=== PATIENT | male | born 1940 | race Caucasian/White ===

== ENCOUNTER 2017-04-16 15:08 | Observation (INO) | payer BC ==
[~2017-04-16] VITALS: Ht 182.9 cm; Wt 85.2 kg
[~2017-04-16 15:08] MED LIST: ASPIRIN E.C. 8181 MG PO; LEVOTHYROXIN0.112 MG PO; LOSARTAN POTASS1 TA2 PO; TRIAMCINOLONE A15 GM TP
[2017-04-16] MEDS ORDERED: PRILOSEC OTC20 MG PO (15:32)
[2017-04-16] MEDS ORDERED: VITAMIN C PURE500 M1 PO (15:33)
[2017-04-16 16:00] VITALS: BP 163/97
[2017-04-16 18:06] VITALS: BP 146/90
[2017-04-16 18:31] VITALS: BP 146/90
[2017-04-16 23:01] VITALS: BP 115/68
[2017-04-17 03:39] VITALS: BP 130/65
[2017-04-17 06:28] VITALS: BP 139/80
[2017-04-17 11:56] VITALS: BP 145/84
[2017-04-17 15:48] VITALS: BP 151/87
== END 2017-04-17 15:51 | disposition home or self-care (01) ==
LOC: MED/SURG 15:08
PROVIDERS: ADMIT Nurse Practitioner Primary Care
DX: E13.10 Other specified diabetes mellitus with ketoacidosis without coma (principal); E87.1 Hypo-osmolality and hyponatremia; I10 Essential (primary) hypertension; E03.9 Hypothyroidism, unspecified
CPT/HCPCS: G0378; J1815; J7030

== ENCOUNTER → 2017-07-21 | Outpatient (CLI) | payer BC ==
[~2017-07-21] MED LIST changes: +PRILOSEC OTC20 MG PO; +VITAMIN C PURE500 M1 PO
[2017-07-21 08:02] LABS: BASO # 0.1 (0.02-0.10); EOS # 0.2 (0.04-0.40); EOS % 2.6 % (0.0-4.0); HEMATOCRIT 42.4 % (42.0-52.0); HEMOGLOBIN 14.1 g/dL (13.5-18.0); LYMPH# 2.5 (1.50-4.00); MEAN CELL VOLUME 96 fl (78-100); MEAN CORPUSCULAR HEMOGLOBIN 32 pg (27-31); MEAN CORPUSCULAR HGB CONC 33 g/dL (33-37); MEAN PLATELET VOLUME 9.5 fl (7.4-10.4); MONO # 0.7 (0.20-0.80); NEU # 3.2 (1.40-6.50); PLATELET COUNT 260 K/mm3 (130-400); RED BLOOD COUNT 4.43 M/mm3 (4.20-5.60); RED CELL DISTRIBUTION WIDTH 13.5 % (11.5-14.5); WHITE BLOOD COUNT 6.6 K/mm3 (4.8-10.8)
[2017-07-21 08:12] LABS: BUN/CREATININE RATIO 17.3 (6.0-26.0); CALCIUM 9.3 mg/dL (8.4-10.2)
== END ==
LOC: LAB 07:37
PROVIDERS: Internal Medicine
DX: E11.9 Type 2 diabetes mellitus without complications (principal); I10 Essential (primary) hypertension; E78.2 Mixed hyperlipidemia; E03.4 Atrophy of thyroid (acquired)

== ENCOUNTER → 2017-10-27 | Outpatient (CLI) | payer BC | LOC: LAB 07:08 | DX: E11.9 Type 2 diabetes mellitus without complications (principal) ==

== ENCOUNTER → 2018-03-25 | Outpatient (CLI) | payer BC ==
[2018-03-25 07:37] LABS: EOS # 0.2 (0.04-0.40); EOS % 3.5 % (0.0-4.0); HEMATOCRIT 43.4 % (42.0-52.0); HEMOGLOBIN 14.7 g/dL (13.5-18.0); LYMPH# 2.4 (1.50-4.00); MEAN CELL VOLUME 94 fl (78-100); MEAN CORPUSCULAR HEMOGLOBIN 32 pg (27-31); MEAN CORPUSCULAR HGB CONC 34 g/dL (33-37); MEAN PLATELET VOLUME 9.5 fl (7.4-10.4); MONO # 0.7 (0.20-0.80); NEU # 3.4 (1.40-6.50); PLATELET COUNT 248 K/mm3 (130-400); RED BLOOD COUNT 4.64 M/mm3 (4.20-5.60); RED CELL DISTRIBUTION WIDTH 13.3 % (11.5-14.5); WHITE BLOOD COUNT 6.8 K/mm3 (4.8-10.8)
[2018-03-25 07:44] LABS: ALBUMIN 4.2 g/dL (3.5-5.0); CALCIUM 9.3 mg/dL (8.4-10.2); TOTAL BILIRUBIN 0.6 mg/dL (0.2-1.3); TOTAL PROTEIN 8.3 g/dL (6.3-8.2)
[2018-03-25 08:51] LABS: URINE APPEARANCE CLEAR; URINE BILIRUBIN NEGATIVE (NEGATIVE); URINE BLOOD NEGATIVE (NEGATIVE); URINE COLOR YELLOW; URINE GLUCOSE NEGATIVE (NEGATIVE); URINE KETONE NEGATIVE (NEGATIVE); URINE LEUKOCYTE ESTERASE NEGATIVE (NEGATIVE); URINE MUCUS PRESENT (NOT PRESENT); URINE NITRATE NEGATIVE (NEGATIVE); URINE PROTEIN(semi-quant) NEGATIVE (NEGATIVE); URINE UROBILINOGEN NORMAL (NORMAL)
[2018-03-25 09:17] LABS: ERYTHROCYTE SEDIMENTATION RATE 23 mm/hr (0-20)
== END ==
LOC: LAB 07:02
PROVIDERS: Internal Medicine
DX: Z12.5 Encounter for screening for malignant neoplasm of prostate (principal); Z12.11 Encounter for screening for malignant neoplasm of colon; E03.9 Hypothyroidism, unspecified; E11.9 Type 2 diabetes mellitus without complications; E78.2 Mixed hyperlipidemia; I10 Essential (primary) hypertension

== ENCOUNTER → 2019-08-26 | Outpatient (CLI) | payer BC ==
[2019-08-26 08:05] LABS: EOS # 0.3 (0.04-0.40); EOS % 4.8 % (0.0-4.0); HEMATOCRIT 40.1 % (42.0-52.0); HEMOGLOBIN 12.5 g/dL (13.5-18.0); MEAN CELL VOLUME 88 fl (78-100); MEAN CORPUSCULAR HEMOGLOBIN 28 pg (27-31); MEAN CORPUSCULAR HGB CONC 31 g/dL (33-37); MEAN PLATELET VOLUME 9.8 fl (7.4-10.4); MONO # 0.7 (0.20-0.80); NEU # 2.7 (1.40-6.50); PLATELET COUNT 272 K/mm3 (130-400); RED BLOOD COUNT 4.55 M/mm3 (4.20-5.60); RED CELL DISTRIBUTION WIDTH 15.3 % (11.5-14.5); WHITE BLOOD COUNT 5.7 K/mm3 (4.8-10.8)
[2019-08-26 08:07] LABS: ALBUMIN 3.9 g/dL (3.4-4.8); POTASSIUM 4.4 mmol/L (3.5-5.1)
[2019-08-26 08:08] LABS: CALCIUM 9.1 mg/dL (8.3-10.5)
[2019-08-26 08:10] LABS: TOTAL PROTEIN 7.8 g/dL (6.2-8.1)
[2019-08-26 08:11] LABS: TOTAL BILIRUBIN 0.5 mg/dL (0.2-1.2)
[2019-08-26 08:37] LABS: URINE APPEARANCE CLEAR; URINE BILIRUBIN NEGATIVE (NEGATIVE); URINE BLOOD NEGATIVE (NEGATIVE); URINE COLOR YELLOW; URINE GLUCOSE NEGATIVE (NEGATIVE); URINE KETONE NEGATIVE (NEGATIVE); URINE LEUKOCYTE ESTERASE NEGATIVE (NEGATIVE); URINE NITRATE NEGATIVE (NEGATIVE); URINE PROTEIN(semi-quant) TRACE mg/dL (NEGATIVE); URINE UROBILINOGEN NORMAL (NORMAL)
[2019-08-26 08:38] LABS: URINE MUCUS PRESENT (NOT PRESENT)
[2019-08-26 09:17] LABS: ERYTHROCYTE SEDIMENTATION RATE 23 mm/hr (0-20)
== END ==
LOC: LAB 07:26
PROVIDERS: Internal Medicine
DX: Z12.5 Encounter for screening for malignant neoplasm of prostate (principal); Z12.11 Encounter for screening for malignant neoplasm of colon; E78.2 Mixed hyperlipidemia; E11.9 Type 2 diabetes mellitus without complications; I10 Essential (primary) hypertension; E03.9 Hypothyroidism, unspecified

== ENCOUNTER → 2019-09-02 | Outpatient (CLI) | payer BC | LOC: AMSURD 08:17 → RAD 08:17 | DX: E11.9 Type 2 diabetes mellitus without complications (principal); E78.2 Mixed hyperlipidemia; I10 Essential (primary) hypertension; E03.9 Hypothyroidism, unspecified; I49.3 Ventricular premature depolarization ==

== ENCOUNTER → 2019-09-07 | Outpatient (CLI) | payer BC | LOC: RAD 07:48 | DX: I65.23 Occlusion and stenosis of bilateral carotid arteries (principal); I25.10 Atherosclerotic heart disease of native coronary artery without angina pectoris ==

== ENCOUNTER → 2020-05-22 | Outpatient (CLI) | payer BC ==
[2020-05-22 08:13] LABS: BASO # 0.1 (0.02-0.10); EOS # 0.3 (0.04-0.40); EOS % 4.5 % (0.0-4.0); HEMATOCRIT 38.3 % (42.0-52.0); HEMOGLOBIN 11.5 g/dL (13.5-18.0); LYMPH# 2.6 (1.50-4.00); MEAN CELL VOLUME 85 fl (78-100); MEAN CORPUSCULAR HEMOGLOBIN 26 pg (27-31); MEAN CORPUSCULAR HGB CONC 30 g/dL (33-37); MEAN PLATELET VOLUME 9.9 fl (7.4-10.4); MONO # 0.8 (0.20-0.80); NEU # 2.7 (1.40-6.50); PLATELET COUNT 279 K/mm3 (130-400); RED CELL DISTRIBUTION WIDTH 15.6 % (11.5-14.5); WHITE BLOOD COUNT 6.4 K/mm3 (4.8-10.8)
[2020-05-22 08:18] LABS: ALBUMIN 3.9 g/dL (3.4-4.8); POTASSIUM 4.3 mmol/L (3.5-5.1)
[2020-05-22 08:19] LABS: CALCIUM 8.9 mg/dL (8.3-10.5)
[2020-05-22 08:22] LABS: TOTAL BILIRUBIN 0.4 mg/dL (0.2-1.2)
== END ==
LOC: LAB 07:30
PROVIDERS: Internal Medicine
DX: E11.9 Type 2 diabetes mellitus without complications (principal); E78.2 Mixed hyperlipidemia; I10 Essential (primary) hypertension; E03.9 Hypothyroidism, unspecified

== ENCOUNTER → 2020-11-21 | Outpatient (CLI) | payer BC ==
[2020-11-21 11:04] LABS: ALBUMIN 4.1 g/dL (3.4-4.8); POTASSIUM 3.9 mmol/L (3.5-5.1)
[2020-11-21 11:05] LABS: CALCIUM 9.1 mg/dL (8.3-10.5)
[2020-11-21 11:06] LABS: TOTAL PROTEIN 8.3 g/dL (6.2-8.1)
[2020-11-21 11:08] LABS: TOTAL BILIRUBIN 0.5 mg/dL (0.2-1.2)
[2020-11-21 11:14] LABS: HEMATOCRIT 31.1 % (42.0-52.0); HEMOGLOBIN 9.3 g/dL (13.5-18.0); MEAN CELL VOLUME 83 fl (78-100); MEAN CORPUSCULAR HEMOGLOBIN 25 pg (27-31); MEAN CORPUSCULAR HGB CONC 30 g/dL (33-37); MEAN PLATELET VOLUME 10.8 fl (7.4-10.4); PLATELET COUNT 299 K/mm3 (130-400); RED BLOOD COUNT 3.77 M/mm3 (4.20-5.60); RED CELL DISTRIBUTION WIDTH 16.2 % (11.5-14.5); WHITE BLOOD COUNT 6.9 K/mm3 (4.8-10.8)
[2020-11-21 12:15] LABS: LYMPHOCYTE 32 % (20-51); MONOCYTE 11 % (3-10); NEUTROPHILS 54 % (42-75)
[2020-11-21 12:16] LABS: ERYTHROCYTE SEDIMENTATION RATE 0 mm/hr (0-20); OVALOCYTES 1+
== END ==
LOC: LAB 09:46
PROVIDERS: Internal Medicine
DX: Z12.5 Encounter for screening for malignant neoplasm of prostate (principal); I10 Essential (primary) hypertension; E78.2 Mixed hyperlipidemia; E03.4 Atrophy of thyroid (acquired); D64.9 Anemia, unspecified; E11.9 Type 2 diabetes mellitus without complications; K90.9 Intestinal malabsorption, unspecified; R06.09 Other forms of dyspnea

== ENCOUNTER → 2020-11-24 | Outpatient (CLI) | payer BC | LOC: LAB 08:25 | DX: Z12.11 Encounter for screening for malignant neoplasm of colon (principal) ==

== ENCOUNTER → 2020-12-14 | Day surgery (SDC) | payer BC | LOC: MSO 08:26 | DX: Z86.010 Personal history of colon polyps (principal); D50.9 Iron deficiency anemia, unspecified; K57.30 Diverticulosis of large intestine without perforation or abscess without bleeding; K44.9 Diaphragmatic hernia without obstruction or gangrene; K29.70 Gastritis, unspecified, without bleeding; K22.2 Esophageal obstruction; K21.9 Gastro-esophageal reflux disease without esophagitis; E03.4 Atrophy of thyroid (acquired); E11.22 Type 2 diabetes mellitus with diabetic chronic kidney disease; I12.9 Hypertensive chronic kidney disease with stage 1 through stage 4 chronic kidney disease, or unspecified chronic kidney disease; N18.30 Chronic kidney disease, stage 3 unspecified; Z79.82 Long term (current) use of aspirin; E66.9 Obesity, unspecified; Z79.84 Long term (current) use of oral hypoglycemic drugs; Z79.899 Other long term (current) drug therapy; Z79.890 Hormone replacement therapy; E78.2 Mixed hyperlipidemia; Z87.891 Personal history of nicotine dependence | CPT/HCPCS: 00813; J2704; J7120 ==

== ENCOUNTER → 2021-01-30 | Outpatient (CLI) | payer BC ==
[2021-01-30 08:51] LABS: BASO # 0.05 (0.02-0.10); EOS # 0.19 (0.04-0.40); HEMATOCRIT 40.8 % (42.0-52.0); HEMOGLOBIN 13.3 g/dL (13.5-18.0); LYMPH# 1.82 (1.50-4.00); MEAN CELL VOLUME 89 fl (78-100); MEAN CORPUSCULAR HEMOGLOBIN 29 pg (27-31); MEAN CORPUSCULAR HGB CONC 33 g/dL (33-37); MEAN PLATELET VOLUME 9.7 fl (7.4-10.4); NEU # 3.51 (1.40-6.50); PLATELET COUNT 185 K/mm3 (130-400); RED CELL DISTRIBUTION WIDTH 20.8 % (11.5-14.5); WHITE BLOOD COUNT 6.3 K/mm3 (4.8-10.8)
== END ==
LOC: LAB 08:24
PROVIDERS: Internal Medicine
DX: D64.9 Anemia, unspecified (principal)

== ENCOUNTER → 2021-02-16 | Outpatient (CLI) | payer BC | LOC: CARDLAB 08:42 | DX: R06.00 Dyspnea, unspecified (principal) | CPT/HCPCS: A9500 ==

== ENCOUNTER → 2021-06-07 | Outpatient (CLI) | payer BC ==
[2021-06-07 16:30] LABS: BASO # 0.06 K/mm3 (0.02-0.10); EOS # 0.21 K/mm3 (0.04-0.40); EOS % 2.5 % (0.0-4.0); HEMATOCRIT 41.6 % (42.0-52.0); HEMOGLOBIN 13.9 g/dL (13.5-18.0); LYMPH# 2.39 K/mm3 (1.50-4.00); MEAN CELL VOLUME 98 fl (78-100); MEAN CORPUSCULAR HEMOGLOBIN 33 pg (27-31); MEAN CORPUSCULAR HGB CONC 33 g/dL (33-37); MEAN PLATELET VOLUME 9.9 fl (7.4-10.4); MONO # 0.78 K/mm3 (0.20-0.80); NEU # 4.98 K/mm3 (1.40-6.50); PLATELET COUNT 190 K/mm3 (130-400); RED BLOOD COUNT 4.24 M/mm3 (4.20-5.60); RED CELL DISTRIBUTION WIDTH 13.3 % (11.5-14.5); WHITE BLOOD COUNT 8.4 K/mm3 (4.8-10.8)
[2021-06-07 17:00] LABS: ALBUMIN 3.9 g/dL (3.4-4.8); POTASSIUM 4.1 mmol/L (3.5-5.1)
[2021-06-07 17:02] LABS: CALCIUM 9.6 mg/dL (8.3-10.5)
[2021-06-07 17:03] LABS: TOTAL PROTEIN 7.8 g/dL (6.2-8.1)
[2021-06-07 17:05] LABS: TOTAL BILIRUBIN 0.5 mg/dL (0.2-1.2)
== END ==
LOC: LAB 16:18
PROVIDERS: Internal Medicine
DX: E11.9 Type 2 diabetes mellitus without complications (principal); D64.9 Anemia, unspecified

== ENCOUNTER → 2021-11-26 | Outpatient (CLI) | payer BC ==
[2021-11-26 14:53] LABS: BASO # 0.08 K/mm3 (0.02-0.10); EOS # 0.19 K/mm3 (0.04-0.40); EOS % 2.3 % (0.0-4.0); HEMATOCRIT 42.8 % (42.0-52.0); HEMOGLOBIN 14.6 g/dL (13.5-18.0); MEAN CELL VOLUME 96 fl (78-100); MEAN CORPUSCULAR HEMOGLOBIN 33 pg (27-31); MEAN CORPUSCULAR HGB CONC 34 g/dL (33-37); MEAN PLATELET VOLUME 9.6 fl (7.4-10.4); MONO # 0.69 K/mm3 (0.20-0.80); NEU # 5.01 K/mm3 (1.40-6.50); PLATELET COUNT 204 K/mm3 (130-400); RED BLOOD COUNT 4.44 M/mm3 (4.20-5.60); RED CELL DISTRIBUTION WIDTH 12.8 % (11.5-14.5); WHITE BLOOD COUNT 8.2 K/mm3 (4.8-10.8)
[2021-11-26 15:05] LABS: URINE COLOR YELLOW
[2021-11-26 15:06] LABS: URINE BILIRUBIN NEGATIVE (NEGATIVE); URINE GLUCOSE NEGATIVE (NEGATIVE); URINE KETONE NEGATIVE (NEGATIVE); URINE MUCUS PRESENT (NOT PRESENT); URINE NITRATE NEGATIVE (NEGATIVE); URINE UROBILINOGEN NORMAL (NORMAL)
[2021-11-26 15:15] LABS: ALBUMIN 4.2 g/dL (3.4-4.8); POTASSIUM 4.1 mmol/L (3.5-5.1)
[2021-11-26 15:16] LABS: CALCIUM 9.7 mg/dL (8.3-10.5)
[2021-11-26 15:17] LABS: TOTAL PROTEIN 8.3 g/dL (6.2-8.1)
[2021-11-26 15:19] LABS: TOTAL BILIRUBIN 0.6 mg/dL (0.2-1.2)
[2021-11-26 15:24] LABS: MAGNESIUM 1.68 mg/dL (1.60-2.60)
[2021-11-26 16:43] LABS: URINE APPEARANCE CLEAR
[2021-11-26 16:44] LABS: URINE BLOOD NEGATIVE (NEGATIVE); URINE LEUKOCYTE ESTERASE NEGATIVE (NEGATIVE); URINE PROTEIN(semi-quant) TRACE (NEGATIVE)
== END ==
LOC: RAD 14:39 → AMSURD 14:39 → LAB 14:39
PROVIDERS: Internal Medicine
DX: Z01.818 Encounter for other preprocedural examination (principal); Z12.5 Encounter for screening for malignant neoplasm of prostate; E03.4 Atrophy of thyroid (acquired); I45.10 Unspecified right bundle-branch block; E78.2 Mixed hyperlipidemia; E11.9 Type 2 diabetes mellitus without complications; K90.9 Intestinal malabsorption, unspecified; R00.1 Bradycardia, unspecified

== ENCOUNTER → 2021-11-27 | Outpatient (CLI) | payer BC | LOC: LAB 08:10 | PROVIDERS: Internal Medicine | DX: Z01.818 Encounter for other preprocedural examination (principal); Z12.5 Encounter for screening for malignant neoplasm of prostate; E03.4 Atrophy of thyroid (acquired); E78.2 Mixed hyperlipidemia; E11.9 Type 2 diabetes mellitus without complications; K90.9 Intestinal malabsorption, unspecified ==

== ENCOUNTER → 2021-11-28 | Day surgery (SDC) | payer BC | END | disposition home or self-care (01) | LOC: MSO 06:54 | DX: H25.811 Combined forms of age-related cataract, right eye (principal) | CPT/HCPCS: 00142; J0171; J2250; J3010; V2632 ==

== ENCOUNTER → 2021-12-26 | Day surgery (SDC) | payer BC | END | disposition home or self-care (01) | LOC: MSO 02:06 | DX: H25.812 Combined forms of age-related cataract, left eye (principal); Z87.891 Personal history of nicotine dependence | CPT/HCPCS: 00142; J0171; J2250; V2632 ==

== ENCOUNTER → 2022-06-07 | Outpatient (CLI) | payer BC | LOC: LAB 09:42 | DX: R05.9 Cough, unspecified (principal); Z20.822 Contact with and (suspected) exposure to COVID-19; Z87.891 Personal history of nicotine dependence ==

== ENCOUNTER 2022-08-05 12:01 | Emergency (ER) | payer BC ==
[~2022-08-05] VITALS: Ht 182.9 cm; Wt 88.6 kg
[2022-08-05] MEDS ORDERED: AMLODIPINE BESYL5 MG PO (12:16)
[2022-08-05] MEDS ORDERED: AMOXICILLIN AND1 TA2 PO (12:16)
[2022-08-05] MEDS ORDERED: ATORVASTATIN CA40 MG PO (12:21)
[2022-08-05] MEDS ORDERED: GLIMEPIRIDE4 MG PO (12:22)
[2022-08-05] MEDS ORDERED: LOSARTAN POTASS50 M1 PO (12:24)
[2022-08-05] MEDS ORDERED: METFORMIN ER500 MG (12:25)
[2022-08-05] MEDS ORDERED: OMEPRAZOLE40 MG PO (12:26)
[2022-08-05] MEDS ORDERED: TOBRAMYCIN AND2.5 ML (12:28)
[2022-08-05 13:15] LABS: BASO # 0.02 K/mm3 (0.02-0.10); EOS # 0.03 K/mm3 (0.04-0.40); EOS % 0.4 % (0.0-4.0); HEMATOCRIT 43.8 % (42.0-52.0); HEMOGLOBIN 14.9 g/dL (13.5-18.0); LYMPH# 1.07 K/mm3 (1.50-4.00); MEAN CELL VOLUME 94 fl (78-100); MEAN CORPUSCULAR HEMOGLOBIN 32 pg (27-31); MEAN CORPUSCULAR HGB CONC 34 g/dL (33-37); MEAN PLATELET VOLUME 9.7 fl (7.4-10.4); MONO # 1.08 K/mm3 (0.20-0.80); NEU # 4.48 K/mm3 (1.40-6.50); PLATELET COUNT 249 K/mm3 (130-400); RED BLOOD COUNT 4.66 M/mm3 (4.20-5.60); WHITE BLOOD COUNT 6.7 K/mm3 (4.8-10.8)
[2022-08-05 13:21] LABS: ALBUMIN 3.5 g/dL (3.4-4.8)
[2022-08-05 13:22] LABS: CALCIUM 9.1 mg/dL (8.3-10.5)
[2022-08-05 13:23] LABS: TOTAL PROTEIN 7.5 g/dL (6.2-8.1)
[2022-08-05 13:36] LABS: TROPONIN-I 0.053 ng/mL (<0.030)
[2022-08-05 13:51] LABS: URINE APPEARANCE CLEAR; URINE BILIRUBIN NEGATIVE (NEGATIVE); URINE BLOOD NEGATIVE (NEGATIVE); URINE COLOR YELLOW; URINE GLUCOSE NEGATIVE (NEGATIVE); URINE KETONE NEGATIVE (NEGATIVE); URINE LEUKOCYTE ESTERASE TRACE (NEGATIVE); URINE MUCUS PRESENT (NOT PRESENT); URINE NITRATE NEGATIVE (NEGATIVE); URINE PROTEIN(semi-quant) 2+ (NEGATIVE)
[2022-08-05 14:06] LABS: D-DIMER 6.96 mg/L FEU (0.15-0.50)
[2022-08-06 05:38] LABS: HEMATOCRIT 39.3 % (42.0-52.0); HEMOGLOBIN 13.5 g/dL (13.5-18.0); MEAN CELL VOLUME 95 fl (78-100); MEAN CORPUSCULAR HEMOGLOBIN 33 pg (27-31); MEAN CORPUSCULAR HGB CONC 34 g/dL (33-37); MEAN PLATELET VOLUME 9.3 fl (7.4-10.4); PLATELET COUNT 230 K/mm3 (130-400); RED BLOOD COUNT 4.16 M/mm3 (4.20-5.60); WHITE BLOOD COUNT 5.2 K/mm3 (4.8-10.8)
[2022-08-06 05:49] LABS: CALCIUM 8.4 mg/dL (8.3-10.5)
[2022-08-06 05:51] LABS: TOTAL PROTEIN 6.4 g/dL (6.2-8.1)
[2022-08-06 05:53] LABS: TOTAL BILIRUBIN 0.8 mg/dL (0.2-1.2)
[2022-08-06 06:03] LABS: TROPONIN-I 0.048 ng/mL (<0.030)
[2022-08-06 06:29] LABS: BAND 15 % (0-10); LYMPHOCYTE 16 % (20-51); MONOCYTE 20 % (3-10); NEUTROPHILS 49 % (42-75)
[2022-08-06 11:20] VITALS: BP 145/83
[2022-09-24] MEDS ORDERED: OPTIMUM AC500 Millio PO (00:12)
[2022-09-24] MEDS ORDERED: ELIQUIS5 MG PO (00:23)
[2022-09-24] MEDS ORDERED: AMIODARONE200 MG PO (00:24)
[2022-09-24] MEDS ORDERED: METRONIDAZOLE500 M1 PO (00:25)
[2022-09-24] MEDS ORDERED: LEVOTHYROXINE0.15 MG PO (00:26)
[2022-09-24] MEDS ORDERED: INSULIN GL100 UNIT/1 SQ (00:28)
[2022-09-24] MEDS ORDERED: INSULIN LI100 UNIT/1 (00:30)
[2022-09-24] MEDS ORDERED: PANTOPRAZOLE SO40 MG PO (00:31)
[2022-09-24] MEDS ORDERED: COLACE100 M1 PO (00:40)
[2022-10-02] MEDS ORDERED: DAPTOMYCIN500 MG IV (12:58)
[2022-10-02] MEDS ORDERED: CEFEPIME IV (13:00)
[2022-10-18] MEDS ORDERED: NATURAL IRON65 MG PO (07:51)
[2022-10-18] MEDS ORDERED: VITAMIN C500 M6 PO (07:52)
[2022-10-18] MEDS ORDERED: AMOXICILLIN AND1 TA2 PO (07:54)
[2022-12-09] MEDS ORDERED: ACIDOPHILUS1 EAC1 PO (08:37)
[2022-12-09] MEDS ORDERED: AMIODARONE HCL100 MG PO (08:38)
[2022-12-09] MEDS ORDERED: OZEMPIC0.25 MG/01 SQ (08:55)
== END 2022-08-06 11:00 | disposition short-term general hospital (02) ==
LOC: ED 12:01
PROVIDERS: Nurse Practitioner
DX: K57.92 Diverticulitis of intestine, part unspecified, without perforation or abscess without bleeding (principal); I21.4 Non-ST elevation (NSTEMI) myocardial infarction; K56.600 Partial intestinal obstruction, unspecified as to cause; D64.9 Anemia, unspecified; R79.1 Abnormal coagulation profile; Z20.822 Contact with and (suspected) exposure to COVID-19
CPT/HCPCS: J1956; J2270; J3490; J7030; Q9967

== ENCOUNTER → 2022-10-16 | Outpatient (CLI) | payer BC ==
[~2022-10-16] MED LIST changes: +AMIODARONE200 MG PO; +AMLODIPINE BESYL5 MG PO; +AMOXICILLIN AND1 TA2 PO; +ATORVASTATIN CA40 MG PO; +CEFEPIME IV; +COLACE100 M1 PO; +DAPTOMYCIN500 MG IV; +ELIQUIS5 MG PO; +GLIMEPIRIDE4 MG PO; +INSULIN GL100 UNIT/1 SQ; +INSULIN LI100 UNIT/1; +LEVOTHYROXINE0.15 MG PO; +LOSARTAN POTASS50 M1 PO; +METFORMIN ER500 MG; +METRONIDAZOLE500 M1 PO; +NATURAL IRON65 MG PO; +OMEPRAZOLE40 MG PO; +OPTIMUM AC500 Millio PO; +PANTOPRAZOLE SO40 MG PO; +TOBRAMYCIN AND2.5 ML; +VITAMIN C500 M6 PO
== END ==
LOC: LAB 08:34
DX: I48.0 Paroxysmal atrial fibrillation (principal); I95.1 Orthostatic hypotension; I12.9 Hypertensive chronic kidney disease with stage 1 through stage 4 chronic kidney disease, or unspecified chronic kidney disease; N18.30 Chronic kidney disease, stage 3 unspecified; E03.4 Atrophy of thyroid (acquired); K90.9 Intestinal malabsorption, unspecified; E78.2 Mixed hyperlipidemia; K57.20 Diverticulitis of large intestine with perforation and abscess without bleeding; E11.9 Type 2 diabetes mellitus without complications

== ENCOUNTER → 2022-10-18 | Outpatient (CLI) | payer BC ==
[~2022-10-18] VITALS: Ht 180.3 cm; Wt 77.3 kg
[2022-10-18 07:46] VITALS: BP 118/73
--- NOTE | 2022-10-18 08:37 | NUR ---
INT initiated and labs drawn with INT start. Purple tube kept on ice immediately after labs drawn per instructions. Medication given per orders at 0820 per orders and INT flushed at 0823. Lab notified of time and provided orders. Pt resting in bed, no needs at this time. in room with pt.
[2022-10-18 08:48] LABS: POTASSIUM 4.7 mmol/L (3.5-5.1)
--- NOTE | 2022-10-18 08:52 | NUR ---
Lab in room to draw 30 min labs.
[2022-10-18 09:23] VITALS: BP 142/79
--- NOTE | 2022-10-18 09:25 | NUR ---
INT removed, and lab in room with pt at this time for 60 min blood draw.
--- NOTE | 2022-10-18 09:30 | NUR ---
Pt out of facility via wheelchair to POV.
[2022-10-21 22:01] LABS: ADRENOCORTICOTROPIC HORMONE 26 pg/mL (5-27)
== END ==
LOC: AMSURD 07:19
PROVIDERS: Internal Medicine
DX: Z51.81 Encounter for therapeutic drug level monitoring (principal)
CPT/HCPCS: J0834

== ENCOUNTER → 2022-10-23 | Outpatient (CLI) | payer BC ==
[2022-10-23 13:57] LABS: ALBUMIN 3.3 g/dL (3.4-4.8)
[2022-10-23 13:58] LABS: POTASSIUM 4.5 mmol/L (3.5-5.1)
[2022-10-23 13:59] LABS: CALCIUM 8.8 mg/dL (8.3-10.5)
[2022-10-23 14:00] LABS: TOTAL PROTEIN 6.9 g/dL (6.2-8.1)
[2022-10-23 14:02] LABS: TOTAL BILIRUBIN 0.2 mg/dL (0.2-1.2)
[2022-10-23 14:06] LABS: MAGNESIUM 1.64 mg/dL (1.60-2.60)
== END ==
LOC: LAB 13:37
PROVIDERS: Nurse Practitioner
DX: I48.0 Paroxysmal atrial fibrillation (principal)

== ENCOUNTER 2022-10-29 13:43 | Emergency (ER) | payer BC ==
[~2022-10-29] VITALS: Ht 180.3 cm; Wt 74.5 kg
[2022-10-29 14:21] LABS: BASO # 0.03 K/mm3 (0.02-0.10); EOS # 0.17 K/mm3 (0.04-0.40); HEMATOCRIT 35.4 % (42.0-52.0); LYMPH# 2.58 K/mm3 (1.50-4.00); MEAN CELL VOLUME 99 fl (78-100); MEAN CORPUSCULAR HEMOGLOBIN 31 pg (27-31); MEAN CORPUSCULAR HGB CONC 31 g/dL (33-37); MEAN PLATELET VOLUME 8.7 fl (7.4-10.4); NEU # 4.87 K/mm3 (1.40-6.50); PLATELET COUNT 252 K/mm3 (130-400); RED BLOOD COUNT 3.59 M/mm3 (4.20-5.60); RED CELL DISTRIBUTION WIDTH 16.7 % (11.5-14.5); WHITE BLOOD COUNT 8.6 K/mm3 (4.8-10.8)
[2022-10-29 14:28] LABS: ALBUMIN 3.4 g/dL (3.4-4.8); POTASSIUM 4.8 mmol/L (3.5-5.1)
[2022-10-29 14:30] LABS: CALCIUM 8.9 mg/dL (8.3-10.5)
[2022-10-29 14:31] LABS: TOTAL PROTEIN 7.3 g/dL (6.2-8.1)
[2022-10-29 14:33] LABS: TOTAL BILIRUBIN 0.2 mg/dL (0.2-1.2)
[2022-10-29 15:59] LABS: URINE WBC 0 /hpf (0-3)
[2022-10-29 16:10] LABS: URINE APPEARANCE CLEAR; URINE COLOR YELLOW
[2022-10-29 16:11] LABS: URINE BILIRUBIN NEGATIVE (NEGATIVE); URINE BLOOD NEGATIVE (NEGATIVE); URINE GLUCOSE 50 mg/dL (NEGATIVE); URINE KETONE NEGATIVE (NEGATIVE); URINE LEUKOCYTE ESTERASE TRACE (NEGATIVE); URINE NITRATE NEGATIVE (NEGATIVE); URINE PROTEIN(semi-quant) TRACE (NEGATIVE); URINE UROBILINOGEN NORMAL (NORMAL)
[2022-10-29 16:26] VITALS: BP 145/74
== END 2022-10-29 16:25 | disposition home or self-care (01) ==
LOC: ED 13:43
PROVIDERS: Physician Assistant
DX: K91.89 Other postprocedural complications and disorders of digestive system (principal); Z93.2 Ileostomy status
CPT/HCPCS: Q9967

== ENCOUNTER → 2022-11-05 | Outpatient (CLI) | payer BC ==
[2022-11-05 17:57] LABS: ALBUMIN 3.6 g/dL (3.4-4.8)
[2022-11-06 10:50] LABS: POTASSIUM 4.5 mmol/L (3.5-5.1)
[2022-11-06 10:51] LABS: CALCIUM 9.1 mg/dL (8.3-10.5)
[2022-11-06 16:44] LABS: TRANSFERRIN 238 mg/dL (163-344)
== END ==
LOC: LAB 17:19
PROVIDERS: Surgery
DX: T81.49XA Infection following a procedure, other surgical site, initial encounter (principal); Z90.49 Acquired absence of other specified parts of digestive tract

== ENCOUNTER → 2023-12-22 | Outpatient (CLI) | payer BC ==
[~2023-12-22] MED LIST changes: +ACIDOPHILUS1 EAC1 PO; +AMIODARONE HCL100 MG PO; +OZEMPIC0.25 MG/01 SQ
[2024-02-10 16:44] LABS: CREATININE OTHER SOURCE 134.9
[2024-02-10 17:59] LABS: ALBUMIN 4.4 g/dL (3.4-4.8); CALCIUM 9.7 mg/dL (8.3-10.5); MAGNESIUM 2.01 mg/dL (1.60-2.60); TOTAL BILIRUBIN 0.9 mg/dL (0.2-1.2); TOTAL PROTEIN 8.3 g/dL (6.2-8.1)
[2024-02-10 18:01] LABS: BASO # 0.03 K/mm3 (0.02-0.10); EOS # 0.21 K/mm3 (0.04-0.40); EOS % 2.5 % (0.0-4.0); HEMATOCRIT 46.4 % (42.0-52.0); HEMOGLOBIN 15.4 g/dL (13.5-18.0); LYMPH# 2.61 K/mm3 (1.50-4.00); MEAN CELL VOLUME 98 fl (78-100); MEAN CORPUSCULAR HEMOGLOBIN 33 pg (27-31); MEAN CORPUSCULAR HGB CONC 33 g/dL (33-37); MEAN PLATELET VOLUME 9.3 fl (7.4-10.4); MONO # 0.73 K/mm3 (0.20-0.80); NEU # 4.89 K/mm3 (1.40-6.50); PLATELET COUNT 181 K/mm3 (130-400); RED BLOOD COUNT 4.73 M/mm3 (4.20-5.60); RED CELL DISTRIBUTION WIDTH 12.6 % (11.5-14.5); WHITE BLOOD COUNT 8.5 K/mm3 (4.8-10.8)
[2024-02-10 18:05] LABS: PH-URINE 5.5 (5.0 - 8.0); URINE APPEARANCE CLEAR (CLEAR); URINE COLOR YELLOW (YELLOW)
[2024-02-10 18:06] LABS: URINE BILIRUBIN NEGATIVE (NEGATIVE); URINE BLOOD NEGATIVE (NEGATIVE); URINE GLUCOSE 2+ (NEGATIVE); URINE KETONE NEGATIVE (NEGATIVE); URINE LEUKOCYTE ESTERASE NEGATIVE (NEGATIVE); URINE NITRATE NEGATIVE (NEGATIVE); URINE PROTEIN(semi-quant) NEGATIVE (NEGATIVE)
== END ==
LOC: LAB 12:30
PROVIDERS: Internal Medicine
DX: Z12.5 Encounter for screening for malignant neoplasm of prostate (principal); Z12.11 Encounter for screening for malignant neoplasm of colon; E03.4 Atrophy of thyroid (acquired); I10 Essential (primary) hypertension; E78.2 Mixed hyperlipidemia; E11.9 Type 2 diabetes mellitus without complications; K90.9 Intestinal malabsorption, unspecified

== ENCOUNTER → 2024-03-23 | Outpatient (CLI) | payer BC ==
[2024-03-23 09:31] LABS: BASO # 0.04 K/mm3 (0.02-0.10); EOS # 0.23 K/mm3 (0.04-0.40); EOS % 2.9 % (0.0-4.0); HEMATOCRIT 43.1 % (42.0-52.0); HEMOGLOBIN 14.3 g/dL (13.5-18.0); MEAN CELL VOLUME 100 fl (78-100); MEAN CORPUSCULAR HEMOGLOBIN 33 pg (27-31); MEAN CORPUSCULAR HGB CONC 33 g/dL (33-37); MEAN PLATELET VOLUME 9.2 fl (7.4-10.4); MONO # 0.57 K/mm3 (0.20-0.80); NEU # 4.54 K/mm3 (1.40-6.50); PLATELET COUNT 187 K/mm3 (130-400); RED CELL DISTRIBUTION WIDTH 13.4 % (11.5-14.5); WHITE BLOOD COUNT 7.9 K/mm3 (4.8-10.8)
[2024-03-23 09:36] LABS: ALBUMIN 4.2 g/dL (3.4-4.8)
[2024-03-23 09:37] LABS: CALCIUM 9.6 mg/dL (8.3-10.5)
[2024-03-23 09:38] LABS: TOTAL PROTEIN 8.1 g/dL (6.2-8.1)
[2024-03-23 09:40] LABS: TOTAL BILIRUBIN 0.9 mg/dL (0.2-1.2)
[2024-03-23 09:45] LABS: MAGNESIUM 1.88 mg/dL (1.60-2.60)
== END ==
LOC: LAB 09:19
PROVIDERS: Internal Medicine
DX: E03.4 Atrophy of thyroid (acquired) (principal); I10 Essential (primary) hypertension; E11.9 Type 2 diabetes mellitus without complications

== ENCOUNTER → 2024-06-21 | Outpatient (CLI) | payer BC ==
[2024-06-21 08:45] LABS: URINE WBC 0 /hpf (0-3)
[2024-06-21 08:50] LABS: BASO # 0.04 K/mm3 (0.02-0.10); EOS # 0.25 K/mm3 (0.04-0.40); EOS % 3.1 % (0.0-4.0); HEMATOCRIT 42.5 % (42.0-52.0); LYMPH# 2.73 K/mm3 (1.50-4.00); MEAN CELL VOLUME 101 fl (78-100); MEAN CORPUSCULAR HEMOGLOBIN 33 pg (27-31); MEAN CORPUSCULAR HGB CONC 33 g/dL (33-37); MEAN PLATELET VOLUME 9.2 fl (7.4-10.4); MONO # 0.63 K/mm3 (0.20-0.80); NEU # 4.24 K/mm3 (1.40-6.50); PLATELET COUNT 198 K/mm3 (130-400); RED CELL DISTRIBUTION WIDTH 13.2 % (11.5-14.5)
[2024-06-21 09:02] LABS: ALBUMIN 4.1 g/dL (3.4-4.8)
[2024-06-21 09:03] LABS: CALCIUM 9.7 mg/dL (8.3-10.5)
[2024-06-21 09:06] LABS: TOTAL BILIRUBIN 0.6 mg/dL (0.2-1.2)
[2024-06-21 09:10] LABS: URINE COLOR YELLOW (YELLOW)
[2024-06-21 09:11] LABS: MAGNESIUM 1.96 mg/dL (1.60-2.60); PH-URINE 5.5 (5.0 - 8.0); URINE APPEARANCE CLEAR (CLEAR); URINE BILIRUBIN NEGATIVE (NEGATIVE); URINE BLOOD NEGATIVE (NEGATIVE); URINE GLUCOSE 2+ (NEGATIVE); URINE KETONE NEGATIVE (NEGATIVE); URINE LEUKOCYTE ESTERASE NEGATIVE (NEGATIVE); URINE NITRATE NEGATIVE (NEGATIVE); URINE PROTEIN(semi-quant) 1+ (NEGATIVE)
== END ==
LOC: LAB 08:35
PROVIDERS: Internal Medicine
DX: K90.9 Intestinal malabsorption, unspecified (principal); E03.4 Atrophy of thyroid (acquired); I10 Essential (primary) hypertension; E78.2 Mixed hyperlipidemia; E11.9 Type 2 diabetes mellitus without complications

== ENCOUNTER → 2024-09-20 | Outpatient (CLI) | payer BC ==
[2024-09-20 09:46] LABS: BASO # 0.03 K/mm3 (0.02-0.10); EOS # 0.24 K/mm3 (0.04-0.40); EOS % 2.8 % (0.0-4.0); HEMOGLOBIN 15.8 g/dL (13.5-18.0); LYMPH# 2.66 K/mm3 (1.50-4.00); MEAN CELL VOLUME 101 fl (78-100); MEAN CORPUSCULAR HEMOGLOBIN 34 pg (27-31); MEAN CORPUSCULAR HGB CONC 34 g/dL (33-37); MEAN PLATELET VOLUME 9.7 fl (7.4-10.4); MONO # 0.57 K/mm3 (0.20-0.80); NEU # 5.14 K/mm3 (1.40-6.50); PLATELET COUNT 188 K/mm3 (130-400); RED BLOOD COUNT 4.65 M/mm3 (4.20-5.60); RED CELL DISTRIBUTION WIDTH 12.2 % (11.5-14.5); WHITE BLOOD COUNT 8.7 K/mm3 (4.8-10.8)
[2024-09-20 09:51] LABS: ALBUMIN 4.3 g/dL (3.4-4.8)
[2024-09-20 09:53] LABS: CALCIUM 9.8 mg/dL (8.3-10.5)
[2024-09-20 09:54] LABS: TOTAL PROTEIN 8.7 g/dL (6.2-8.1)
[2024-09-20 09:56] LABS: TOTAL BILIRUBIN 0.8 mg/dL (0.2-1.2)
[2024-09-20 10:00] LABS: MAGNESIUM 1.78 mg/dL (1.60-2.60)
== END ==
LOC: LAB 09:18
PROVIDERS: Internal Medicine
DX: I10 Essential (primary) hypertension (principal); K90.9 Intestinal malabsorption, unspecified; E11.9 Type 2 diabetes mellitus without complications